=== PATIENT | female | born 1930 | race African-American/Black ===

== ENCOUNTER 2016-12-28 15:32 | Observation (INO) | payer MEDICARE, OTHER ==
[2016-12-28 16:17] LABS: Hematocrit 46.8 % (36.0-47.0); Mean Platelet Volume 9.2 fL (7.4-10.4); Red Blood Cell (RBC) Count 4.93 mill/uL (4.20-5.40); White Blood Cell (WBC) Count 18.1 thou/uL (4.8-10.8)
[2016-12-28 16:22] LABS: ALT (SGPT) 10 U/L (8-55); AST (SGOT) 17 U/L (5-34); Alkaline Phosphatase 145 U/L (40-150); Anion Gap 12 mmol/L (10-20); BUN (Urea Nitrogen) 12 mg/dL (9.8-20.1); Bilirubin, Total 0.3 mg/dL (0.2-1.2); CK (CPK) 72 U/L (29-168); Calc. Creatinine Clearance 0 mL/min (70-130); Calcium 10.2 mg/dL (7.8-10.44); Carbon Dioxide 30 mmol/L (23-31); Chloride 102 mmol/L (98-107); Estimated GFR-MDRD 85; Globulin 4.1 g/dL (2.4-3.5); Lipase 6 U/L (8-78); Protein, Total 8.8 g/dL (6.0-8.3)
[2016-12-28 16:26] LABS: Troponin I Less than 0.010 ng/mL (< 0.028)
[2016-12-28 16:29] LABS: Neutrophil 47 % (42-75)
--- NOTE | 2016-12-28 16:34 | RAD ---
FRONTAL RADIOGRAPH CHEST 12/28/2016 COMPARISON: Two views of chest 12/28/2016. HISTORY: Chest pain. FINDINGS: There is a dual-lead transvenous pacing device inserted via a left subclavian approach. There is atherosclerotic calcification of the aortic arch. Since the study performed earlier on 12/28/2016, there is mild increased linear interstitial density in both lung bases. This may signify interval development of mild interstitial pulmonary edema. N o large volume pleural effusion, focal consolidation, or evidence of alveolar edema. IMPRESSION: Interval development of interstitial linear density in the lung bases may signify interstitial pulmo nary edema in the proper clinical setting. POS: LEXI
[2016-12-28] MEDS ORDERED: Azithromycin 250 MG TAB ONE (17:31)
[2016-12-28] MEDS ORDERED: Doxycycline 100 MG CAP PO SCH (18:45)
[2016-12-28 19:11] LABS: Troponin I Less than 0.010 ng/mL (< 0.028)
[2016-12-28] MEDS ORDERED: Ondansetron ODT 4 MG TAB PO PRN (21:09)
[2016-12-28 21:19] VITALS: BMI 20.3
[2016-12-28] MEDS: Nitroglycerin 2% Ointment 1 INCH/1 GM Packet TOP SCH (22:10)
[2016-12-28] MEDS: Famotidine 20 MG TAB PO SCH (22:20)
[2016-12-28] MEDS: Metoprolol Tartrate 25 MG TAB PO SCH (22:20)
--- NOTE | 2016-12-28 22:49 | HP ---
DATE OF ADMISSION: 12/28/2016 CHIEF COMPLAINT: Chest pain. HISTORY OF PRESENT ILLNESS: Ms. Thakur is a pleasant 86-year-old female who had a 2-day history of intermittent chest pain. She describes it as a feeling of a weight on her chest. She became nauseated when it first started, but has not recurred. The patient started yesterday morning when she was at rest. It has been off and on, most recently t sha while she was trying to cook food. It lasts anywhere from 1 to 2 minutes. Today, she has left arm and hand numbness and tingling, which worried her. She has had no shortness of breath, no diap horesis, otherwise. No nausea, vomiting, diarrhea, or constipation today. She says it is alleviated by rest and exacerbated by moving and doing activities. In the emergency department, workup was unremarkable. She had negative biomarkers x2. Vitals were stable. PAST MEDICAL HISTORY: 1. Hypertension. 2. Supraventricular tachycardia. 3. Diverticulosis with diverticulitis. 4. Iron deficiency anemia. 5. Hyperlipidemia, probably on high cholesterol. 6. Degenerative joint disease. 7. Peripheral vascular disease. 8. Asthma. PAST SURGICAL HISTORY: 1. She had a pacemaker replacement in 05/2013. She thinks Dr. Gamboa did that. Initial pacemaker wa s in 2001, she thinks by Dr. Jolley. 2. Right lobectomy in 2014. 3. Hysterectomy. 4. Thyroidectomy, unsure if it is full or partial. She is not on any thyroid medications. HOME MEDICATIONS: 1. Diltiazem 180 mg p.o. daily. 2. Aspirin 81 mg daily. 3. Flexeril 5 mg p.o. t.i.d. p.r.n. for muscle spasm. 4. Crestor 40 mg p.o. at bedtime. 5. Claritin 10 mg p.o. daily. 6. Nexium 40 mg p.o. every morning. 7. Mack 5/325 p.r.n. for pain. 8. Albuterol MDI p.r.n. for shortness of breath. ALLERGIES: To: 1. KEFLEX, reaction unknown. 2. PENICILLIN, causes rash. FAMILY HISTORY: Negative for clotting or bleeding disorder. No immune dysfunction and noncontribut ory. SOCIAL HISTORY: Negative for habits x3. She is and lives alone, but has a son that lives t wo blocks away. REVIEW OF SYSTEMS: A 10-point review of systems was performed, negative for all other systems excep t as per HPI. PHYSICAL EXAMINATION: VITAL SIGNS: Temperature 98.7, pulse 81, blood pressure 142/82, respiratory 18, satting 98% on room air. GENERAL: She is awake. She is alert. She is oriented in 3. She is a thin female , appears to be in no distress. HEENT: Normocephalic, atraumatic. Pupils are equal, round, and react to light bilaterally, mucous membranes are moist. She has no visible lesions. No thrush. She is wearing a wig. NECK: Supple without lymphadenopathy, JVD, or thyromegaly. She has a normal carotid upstrokes. I do not appreciate bruits. LUNGS: Clear to auscultation bilaterally without wheezes, rales, or rhonchi. She initially had tyshawn e faint bibasilar crackles that is cleared with her first deep breath. CARDIOVASCULAR: She has normal S1 and S2. She has normal cardiac and regular. She has no audible murmurs. Pacemaker to the left upper chest is clean, dry, and intact. ABDOMEN: Soft, it is nontender, nondistended. She has no masses, no organomegaly with normoactive bowel sounds. EXTREMITIES: Show no cyanosis, no clubbing, no edema. She has thin extremities with barely palpabl e posterior tibial pulses bilaterally. Her legs are cool to touch. SKIN: Warm, moist, and well perfused without rashes or lesions. NEUROLOGIC EXAM: Cranial nerves II through XII are grossly intact without focal or neurologic defic its. She has 5/5 strength. LABORATORY DATA AND IMAGING: CMP is completely normal. Creatinine is 0.78, potassium 4.4. Liver f unction is normal. CBC showed a white count of 18.1 with a normal differential, hemoglobin 14.9, he matocrit of 46.8, and platelets are normal. Troponin I was undetectable x2, MB was 1.9 and 1.7. Chest x-ray showed bibasilar linear density that could be a linear pulmonary edema. EKG showed normal sinus rhythm. She has no pathologic ST-T changes. IMPRESSION AND PLAN: 1. Chest pain: Pressure like in the patient with multiple risk factors. She was placed on metopro lol, nitro paste, oxygen, aspirin and get serial cardiac biomarkers. Echocardiogram has been ordere d for the morning. We will ask Cardiology to see her. Her biomarkers were negative. We will defer stress testing to Cardiology. 2. Hypertension. We will continue home medications. 3. History of supraventricular tachycardia. Pacemaker in place. She is on diltiazem, which will c ontinue. 4. Diverticulosis, asymptomatic. 5. History of iron deficiency anemia. Hemoglobin normal. 6. Hyperlipidemia, primarily cholesterol. We will continue Crestor. 7. Peripheral vascular disease, currently stable. 8. History of asthma. We will continue MDI p.r.n. Thus patient placed on observation with telemetry. We will follow up on the results in the morning.
[2016-12-28 23:03] LABS: Troponin I 0.016 ng/mL (< 0.028)
[2016-12-29] MEDS: Nitroglycerin 2% Ointment 1 INCH/1 GM Packet TOP SCH ×2 (04:28→08:56)
[2016-12-29 06:04] LABS: Anion Gap 8 mmol/L (10-20); BUN (Urea Nitrogen) 11 mg/dL (9.8-20.1); Calc. Creatinine Clearance 49 mL/min (70-130); Calcium 9.4 mg/dL (7.8-10.44); Carbon Dioxide 28 mmol/L (23-31); Chloride 106 mmol/L (98-107); Cholesterol 219 mg/dl (< 200 Desired); Estimated GFR-MDRD Greater than 90; LDL Cholesterol, Calculated 162 mg/dL
[2016-12-29 06:18] LABS: Hematocrit 41.1 % (36.0-47.0); Mean Platelet Volume 9.7 fL (7.4-10.4); Neutrophil 29 % (42-75); Reactive Lymphocytes 15 % (0-10); Red Blood Cell (RBC) Count 4.33 mill/uL (4.20-5.40); White Blood Cell (WBC) Count 14.7 thou/uL (4.8-10.8)
[2016-12-29] MEDS ORDERED: Aspirin 325 MG TAB PO SCH (08:00)
[2016-12-29] MEDS: Famotidine 20 MG TAB PO SCH (08:59)
[2016-12-29] MEDS ORDERED: FLU VACC TS2017-18 (>65YR) 0.5 ML SYRINGE IM ONE (09:00)
[2016-12-29] MEDS: Metoprolol Tartrate 25 MG TAB PO SCH (09:00)
[2016-12-29] MEDS ORDERED: Enoxaparin Sodium 30 MG/0.3 ML SYRINGE SC SCH (09:00)
--- NOTE | 2016-12-29 10:16 | PDOC.CTH ---
<Shabnam Boyce - Last Filed: 12/29/16 10:27> Cardiology Progress Note - Subjective The pt was seen and examined. No overnight events. She reported she feels burning like discomfort with 3/10 on pain scale in her Lt upper chest. She denied SOB, fatigue or nausea since she admitted to the hospital. - Objective Vital Signs Temp Pulse Resp BP Pulse Ox 12/29/16 08:00 98.6 F 71 18 12/29/16 07:11 98.6 F 71 18 134/64 100 12/29/16 03:45 98.7 F 71 16 137/65 95 Weight 118 lb 6.4 oz 12/28/16 12/29/16 12/30/16 06:59 06:59 06:59 Intake Total 240 Output Total 600 Balance -360 - Physical Examination General/Neuro: alert & oriented x3 Neck: no JVD present Lungs: CTA Heart: RRR Abdomen: soft Extremities: other: (No edema) - Telemetry Telemetry Rhythm: SR - Labs Result Diagrams: 12/29/16 05:03 12/29/16 05:03 Troponin/CKMB CK-MB (CK-2) 1.5 ng/mL (0-6.6) 12/29/16 05:03 Troponin I 0.010 ng/mL (< 0.028) 12/29/16 05:03 - Assessment/Plan 1. CP - stable with normal Trop x4; Echo result with normal; on ASA and BBlocker ; Start Lisinopril 10mg daily; recheck Cr level within a few days 2. Hx of SVT - remain SR; Cont. monitor 3. HTN - Stable with current medication 4. COPD - Stable with RA 5. dyslipidemia - Start Lipitor 20 mg daily for high LDL and triglyceride; recheck her Lipid level within 3 months 6. Hx of PM placement - last interrogation showed normal; cont. monitor on tele MAR Reviewed * From Cardiac standpoint, the pt is stable to d/c home with ASA, BBlocker, RONALDO , and Statin med. The pt will f/u with Dr Gamboa office within 2wks for possible outpt stress test and starting Plavix and/or Ranexa for CP Review of Systems - Review of Systems Constitutional: reports: no symptoms reported EENTM: reports: no symptoms reported Respiratory: reports: no symptoms reported Cardiac (ROS): reports: see HPI ABD/GI: reports: no symptoms reported : reports: no symptoms reported Musculoskeletal: reports: no symptoms reported Skin: reports: no symptoms reported Neurological: reports: no symptoms reported <Tyrone Gamboa - Last Filed: 12/29/16 10:58> Cardiology Progress Note - Objective Vital Signs Temp Pulse Resp BP Pulse Ox 12/29/16 08:00 98.6 F 71 18 12/29/16 07:11 98.6 F 71 18 134/64 100 12/29/16 03:45 98.7 F 71 16 137/65 95 Weight 118 lb 6.4 oz 12/28/16 12/29/16 12/30/16 06:59 06:59 06:59 Intake Total 240 Output Total 600 Balance -360 - Labs Result Diagrams: 12/29/16 05:03 12/29/16 05:03 Troponin/CKMB CK-MB (CK-2) 1.5 ng/mL (0-6.6) 12/29/16 05:03 Troponin I 0.010 ng/mL (< 0.028) 12/29/16 05:03 - Assessment/Plan The pt. was seen and eval. by me.Chest clear, RRR,no edema. She denies any chest discomfort or SOB this AM. EKG unremarkable. Enzymes negative. I agree with the A/P by the NURSING HOME DIRECTOR. We have discussed the assessment and plan for the pt. She can be discharged to home.I will see her back in the office in a couple weeks.
[2016-12-29 11:42] VITALS: BP 139/71; TEMP 98
--- NOTE | 2016-12-29 12:52 | DIS ---
PRIMARY CARE PHYSICIAN: Dr. Lane Monroy PRIMARY BARIATRIC PROGRAM COORDINATOR: Dr. Gamboa DATE OF ADMISSION: 12/28/2016 DATE OF DISCHARGE: 12/29/2016 DISCHARGE DIAGNOSES: 1. Chest pain, low risk for acute coronary syndrome. 2. History of supraventricular tachycardia. 3. Hyperlipidemia. 4. Hypertension. 5. Peripheral vascular disease. 6. Diverticulosis. 7. Iron deficiency anemia. 8. Degenerative joint disease. 9. Asthma. CONSULTATIONS: Cardiology, Dr. Gamboa. PROCEDURES: A 2D echocardiogram which revealed EF of 55-60%, pacer wires in place, moderate to richmond re tricuspid regurgitation, but otherwise unremarkable. HISTORY AND PHYSICAL: Ms. Thakur is a pleasant 86-year-old female with a 2-day history of intermi ttent chest pain that she describes as a weight on her chest, initially nauseated, and then began to have numbness and tingling into her left hand and arm. She was in the emergency department for ronit luation. Workup was initially negative. We were called for admission. HOSPITAL COURSE: The patient was seen and examined by me in the Emergency Department. She was plac ed in observation with telemetry. Serial cardiac biomarkers were negative. Labs in the morning wer e normal. Her vitals remained stable. She had no arrhythmias. Cardiology was consulted, and recom mended outpatient follow up with possible stress test, but did not feel she needed to stay in the [facility] to have that completed. She was cleared for discharge. PHYSICAL EXAMINATION: The patient was seen and examined on the day of discharge. Discharge plan an d disposition were discussed with the patient face to face at the bedside. DISCHARGE MEDICATIONS: Same as her home medications. 1. Albuterol MDI 2 puffs q.6h. p.r.n. 2. Amlodipine 5 mg daily. 3. Aspirin 81 mg daily. 4. The patient was changed to Lipitor 20 mg p.o. at bedtime. New prescription was sent and her Cre stor was stopped. 5. Biotin 1000 mcg daily. 6. Calcium plus D3 625/125 one daily. 7. Flexeril 5 mg p.o. t.i.d. p.r.n. 8. Diltiazem 240 mg daily. 9. Nexium 40 mg daily. 10. Iron sulfate 325 mg daily. 11. Atrovent 2.5 mg nebs q.6h. 12. Claritin 10 mg daily. 13. Multivitamin daily. 14. Senokot 8.6 mg 1 b.i.d. p.r.n. FOLLOWUP APPOINTMENTS: 1. Follow up with primary care physician in [address] Gamboa in 2 weeks. PENDING STUDIES: None. DISCHARGE CONDITION: Stable. DISPOSITION: The patient will be discharged home via private vehicle. The patient is instructed to return for worsening chest pain.
[2016-12-29 14:23] LABS: Troponin I Less than 0.010 ng/mL (< 0.028)
[2016-12-29] MEDS ORDERED: Atorvastatin Calcium 20 MG TAB PO SCH (21:00)
== END 2016-12-29 16:13 | disposition home or self-care (01) ==
LOC: ERS 15:32 → 2SW 18:57
PROVIDERS: ADMIT Internal Medicine Infectious Disease; ATTEND Internal Medicine Infectious Disease
DX: R07.89 Other chest pain (principal); I47.1 Supraventricular tachycardia; E78.5 Hyperlipidemia, unspecified; I10 Essential (primary) hypertension; I73.9 Peripheral vascular disease, unspecified; K57.30 Diverticulosis of large intestine without perforation or abscess without bleeding; D50.9 Iron deficiency anemia, unspecified; M19.90 Unspecified osteoarthritis, unspecified site; J45.909 Unspecified asthma, uncomplicated; Z88.1 Allergy status to other antibiotic agents; Z88.0 Allergy status to penicillin; Z79.82 Long term (current) use of aspirin; Z95.0 Presence of cardiac pacemaker; Z90.710 Acquired absence of both cervix and uterus; Z90.2 Acquired absence of lung [part of]; Z87.891 Personal history of nicotine dependence
CPT/HCPCS: 71010; 71020; 80048; 80053 ×2; 80061; 82248; 82378; 82550; 82553 ×4; 83615; 83690; 83880; 84100; 84484 ×4; 84550; 85025 ×2; 87040; 93005; 93306; 94760; 96360; 99285; G0008; G0378 ×2; Q2036; 36415; 90471; 90682

== ENCOUNTER 2017-04-05 13:15 | Outpatient (CLI) | payer MEDICARE, MEDICAID ==
--- NOTE | 2017-04-05 14:56 | RAD ---
AP VIEW OF THE CHEST: INDICATIONS: Dyspnea. COMPARISON: Prior exam dated 03/15/2017. FINDINGS: Chronic lung changes are stable. No focal consolidation, pleural effusion, or pneumothorax is eviden t. The dual-lead pacemaker is unchanged. Heart size and pulmonary vasculature are within normal hanson its. No acute osseous abnormality is evident. IMPRESSION: No acute cardiopulmonary abnormality. POS: KYLIE
== END 2017-04-05 13:16 | disposition home or self-care (01) ==
LOC: RAD 13:15
PROVIDERS: ATTEND Thoracic Surgery (Cardiothoracic Vascular Surgery)
DX: C34.11 Malignant neoplasm of upper lobe, right bronchus or lung (principal)
CPT/HCPCS: 36415; 71045; 80053; 82248; 82378; 83615; 84100; 84550

== ENCOUNTER 2017-09-02 08:09 | Day surgery (SDC) | payer MEDICARE, MEDICAID ==
[2017-08-31 16:03] VITALS: BMI 20.2
[2017-09-02 08:38] LABS: PTT 28.3 SEC (22.9-36.1)
[2017-09-02 08:39] LABS: INR-International Normal Ratio 0.9; Prothrombin Time 12.5 SEC (12.0-14.7)
[2017-09-02 12:06] VITALS: BP 130/68; TEMP 97.6
--- NOTE | 2017-09-02 12:18 | RAD ---
FRONTAL VIEW CHEST: Indication: Status post lung biopsy. Right side. FINDINGS: Post procedural radiograph of chest upon expiration reveals no evidence of significant pneumothorax. There is added density of the right lower lung zone which may relate to post biopsy change, given rec ent procedure. Chest is otherwise similar appearing to 04-05-17 exam. IMPRESSION: No significant post procedure pneumothorax. POS: [facility]
--- NOTE | 2017-09-02 15:44 | RAD ---
RADIOGRAPH CHEST 1 VIEW: Date: 09/02/17 Time: 12:58 p.m. HISTORY: 87-year-old female one hour status post lung biopsy. COMPARISON: 09/02/17, 11:44 a.m. FINDINGS: Image in expiration demonstrates no pneumothorax. Infiltrate-like densities at the lung bases are aga in noted. There is no interval change. IMPRESSION: No pneumothorax. TRIP [] POS: [facility]
--- NOTE | 2017-09-02 15:51 | CT ---
CT GUIDED RIGHT LUNG MASS BIOPSY: 09/02/17 HISTORY: Right lung mass. Lung cancer. FINDINGS: After explaining the procedure and answering all questions, limited CT of the right chest was perform ed. An anterior approach was planned to the spiculated mass right upper lobe. Sterile technique, buffered local anesthesia, CT guidance, and an anterior intercostal approach were used to carefully advanced a 19 gauge trocar needle to the level of the mass. Position was confirmed with CT imaging. A total of four core 20 gauge biopsy specimens were obtained and submitted to pathbernarda smith for evaluation. Needle was removed. Post procedure imaging shows no evidence of pneumothorax. Jaleel e hemorrhage was seen within the lung parenchyma surrounding the mass. Patient tolerated the procedure well and was eventually discharged in good condition. IMPRESSION: Technically successful CT guided right lung mass biopsy. Pathology is pending. POS: [facility]
== END 2017-09-02 13:55 | disposition home or self-care (01) ==
LOC: CT 08:09
PROVIDERS: ATTEND Internal Medicine
PROC: 0BB43ZX Excision of Right Upper Lobe Bronchus, Percutaneous Approach, Diagnostic (ICD-10-PCS; principal; 2017-09-02)
DX: C34.11 Malignant neoplasm of upper lobe, right bronchus or lung (principal); I10 Essential (primary) hypertension; E78.5 Hyperlipidemia, unspecified; J44.9 Chronic obstructive pulmonary disease, unspecified; I25.10 Atherosclerotic heart disease of native coronary artery without angina pectoris; M19.90 Unspecified osteoarthritis, unspecified site; J45.909 Unspecified asthma, uncomplicated; K21.9 Gastro-esophageal reflux disease without esophagitis; I69.954 Hemiplegia and hemiparesis following unspecified cerebrovascular disease affecting left non-dominant side; I07.1 Rheumatic tricuspid insufficiency; D50.9 Iron deficiency anemia, unspecified; Z87.891 Personal history of nicotine dependence; Z88.0 Allergy status to penicillin; Z88.1 Allergy status to other antibiotic agents; Z79.82 Long term (current) use of aspirin; Z79.899 Other long term (current) drug therapy; Z90.2 Acquired absence of lung [part of]; Z95.0 Presence of cardiac pacemaker
CPT/HCPCS: 32405; 36415; 71045; 77012; 85610; 85730; 88305; 88313; 88341; 88342

== ENCOUNTER 2017-09-13 07:38 | Outpatient (CLI) | payer MEDICARE, MEDICAID ==
--- NOTE | 2017-09-13 12:26 | PET ---
RADIONUCLIDE PET SCAN WITH CT ATTENUATION CORRECTION: HISTORY: Lung cancer, recurrent. Metastatic disease. Restaging. COMPARISON: CT arteriogram chest dated 08/21/17. Prior PET scan from 11/06/14 is also evaluated. FINDINGS: There is physiologic uptake of radiotracer within the GI system and along each urinary tract. The dom inant mass within the right middle lobe shows maximum Q. Clear SUV of 8.3. Increased uptake at the ri ght posterior lung base right lower lobe shows a maximum SUV of 4.4. There was no mass or infiltrate in this area on recent CT from 08/21/17. It more likely represents inflammatory infiltrate and metast atic disease. Nodular infiltrate within the lingula of the left upper lobe has also developed since t he recent CT arteriogram chest. Maximum SUV is 3.4. Increased uptake within a left hilar lymph node shows maximum SUV of 2.6. Uptake within the subcarina l lymph node is 2.9. Nondiagnostic CT attenuation correction images show increased interstitial thickening and patchy infi ltrate throughout each lung. Calcification in the arterial structures. Calcified granulomata from hea led granulomatous disease. Dystrophic calcifications and costs associated with the kidneys. IMPRESSION: 1. Right middle lobe lung neoplasm with hypermetabolic left hilar and subcarinal adenopathy. 2. Hypermetabolic activity associated with recently developed infiltrates within the lingula of the left upper lobe and right lower lobe, as detailed above. Given the rapid appearance since the CT from 08/21/17, the abnormal uptake is likely related to inflammation rather than additional neoplastic fo ci. 3. Atherosclerosis. POS: [facility]EXI
== END 2017-09-13 07:39 | disposition home or self-care (01) ==
LOC: PET 07:38
PROVIDERS: ATTEND Internal Medicine Medical Oncology
DX: C34.2 Malignant neoplasm of middle lobe, bronchus or lung (principal); R59.0 Localized enlarged lymph nodes; R91.8 Other nonspecific abnormal finding of lung field; I70.90 Unspecified atherosclerosis
CPT/HCPCS: 70553; 78815; A9552

== ENCOUNTER 2017-09-14 09:42 | Outpatient (CLI) | payer MEDICARE, MEDICAID ==
[2017-09-14] MEDS ORDERED: ISOVUE-370 76%-LOCM 1 ML ONE (12:30)
== END 2017-09-14 09:43 | disposition home or self-care (01) ==
LOC: BICCT 09:42
PROVIDERS: ATTEND Internal Medicine Medical Oncology
DX: C34.90 Malignant neoplasm of unspecified part of unspecified bronchus or lung (principal)
CPT/HCPCS: 70470

== ENCOUNTER 2017-11-15 22:48 | Inpatient (IN) | payer MEDICARE, OTHER ==
[2017-11-15] MEDS ORDERED: Ondansetron HCl/PF 4 MG/2 ML Vial ONE (23:17)
--- NOTE | 2017-11-16 01:18 | PDOC.FPRHP ---
- History of Present Illness Chief Complaint: Abdominal pain History of Present Illness: Patient presents for abdominal pain that began at noon. Pain is cramping across entire abdomen. Presented to [place] ED and was transferred for SBO. Patient reports nausea, no vomiting. Has had 4-5 normal BMs today. Last BM 1800 11/15. Reports normal appetite, ate fried okra before going to ED. Pt has had one obstruction in past. Surgical hx significant only for hysterectomy. Denies fever , chills. ED Course: morphine, zofran, NG tube - Allergies/Adverse Reactions Allergies Allergy/AdvReac Type Severity Reaction Status Date / Time Penicillins Allergy Severe TONGUE Verified 08/31/17 15:51 SWELLING cephalexin monohydrate Allergy Intermediate RASH/ITCHIN Verified 08/31/17 15:51 [From [employer]] G - Home Medications Medication Instructions Recorded Confirmed Type Aspirin [Ecotrin Low Strength] 81 mg PO DAILY 07/10/13 11/16/17 History Cyclobenzaprine HCl 5 mg PO TID 07/10/13 11/16/17 History Albuterol Sulfate [Proair HFA] 2 puff INH Q6H PRN 11/19/14 11/16/17 History Amlodipine Besylate [amLODIPine 5 mg PO DAILY 06/09/16 11/16/17 History Besylate] Sennosides [Senokot] 1 tab PO BID PRN 12/28/16 11/16/17 History Esomeprazole Magnesium [Nexium 20 mg PO DAILY 08/21/17 11/16/17 History 24Hr] Ipratropium [place] [Atrovent] 2.5 mg NEB QID 08/31/17 11/16/17 History Mirtazapine 15 mg PO HS 08/31/17 11/16/17 History Nitroglycerin [Nitrostat] 0.4 mg SL Q5MIN 08/31/17 11/16/17 History - History PMHx: arthritis, HTN, HLD, lung CA on chemo, COPD PSHx: hysterectomy FHx: CAD, breast cancer Social: Lives alone in [place]. Former smoker, quit 20 yrs ago, 1pack/wk for 10 yrs. Denies alcohol or drug use. - Review of Systems General: denies: fever/chills, weight/appetite/sleep changes Eyes: denies: eye pain, vision changes ENT: denies: nasal congestion, rhinorrhea Respiratory: denies: cough, shortness of breath Cardiovascular: denies: chest pain, palpitation, edema Gastrointestinal: reports: nausea, abdominal pain (diffuse, cramping). denies: vomiting, diarrhea, constipation Skin: denies: rashes, lesions Musculoskeletal: reports: arthritis/arthralgias. denies: swelling Neurological: denies: numbness, syncope Psychological: denies: anxiety, depression - Vital signs BP: 120/69 HR: 92 RR: 18 Tmax: 97.5 Pox: 93% on RA Wt: 51 kg - Physical Exam Constitutional: NAD, awake, alert and oriented HEENT: normocephalic and atraumatic, PERRLA, EOMI, grossly normal vision, grossly normal hearing, MMM, oropharynx clear Neck: supple, trachea midline -Chest: L port in place Heart: RRR, normal S1/S2, no murmurs/rubs/gallops, no edema Lungs: CTAB, no rales/rhonchi, no wheezing, no retractions Abdomen: soft, bowel sounds present (hyperactive), other (diffusely TTP) Musculoskeletal: normal structure, normal tone Neurological: no focal deficit Skin: good turgor, capillary refill <2 seconds Heme/Lymphatic: no unusual bruising or bleeding Psychiatric: normal mood and affect FMR H&P: Results - Labs Result Diagrams: 11/16/17 04:42 11/16/17 04:42 FMR H&P: A/P - Problem List (1) SBO (small bowel obstruction) Current Visit: No Status: Acute Code(s): K56.69 - OTHER INTESTINAL OBSTRUCTION * DO NOT USE * Comment: partial (2) H/O: lung cancer Current Visit: No Status: Chronic Code(s): Z85.118 - PERSONAL HISTORY OF MALIGNANT NEOPLASM OF BRONCHUS AND LUNG Comment: h/o lobectomy? in complete remission per patient (3) HTN (hypertension) Current Visit: No Status: Chronic Code(s): I10 - ESSENTIAL (PRIMARY) HYPERTENSION Qualifiers: Hypertension type: essential hypertension Qualified Code(s): I10 - Essential (primary) hypertension - Plan 87 yo F w/ PMH lung cancer, HTN, HLD presents with abdominal pain and admitted for SBO. SBO - last BM 1800 on 11/15 - abdominal pain with N with no V. - CT ab/pelvis showed extensive stool in colon, extensive sigmoid diverticulosis , mod small bowel dilatation with likely obstruction - NG tube placed, monitor output - IVF NS @ 100 - morphine prn, zofran prn - Dr. Henry consulted by ED HTN - monitor BPs, systolic in 120s - pending med rec HLD - pending med rec COPD - pending med rec Lung cancer - Dr. Roman is oncologist - last chemo treatment was 10/03 Ppx: Lovenox Diet: NPO Dispo: admit to medical floor FMR H&P: Upper Level - Pertinent history 87F p/w 8 hour history of crampy abdominal pain. CT confirms SBO. She is c/o nausea but no vomiting. Patient had 5 loose BM's throughout the day prior to obstruction. One prior obstruction. - Pertinent findings BP: 120/69 HR: 92 RR: 18 Tmax: 97.5 Pox: 93% on RA Wt: 51 kg Gen: A&Ox3; in no acute distress CV: RRR; no murmurs Pulm: CTA-B GI: diffuse tenderness to palpation; no rebound or guarding Skin: no rashes or lesions; normal turgor - Plan Date/Time: 11/16/17 0118 1. SBO -CT shows mid SBO -decompress with NG tube; IV morphine for pain control; continue maintenance IVF s/p 1 L NS bolus -Dr. Henry consulted by ED 2. Lung cancer -Dr. Roman is oncologist managing chemo -last chemo treatment was 10/03 [place], have evaluated this patient and agree with findings/plan as outlined by rn internship resident. Pertinent changes/additions are listed here.
[2017-11-16] MEDS ORDERED: Ondansetron HCl/PF 4 MG/2 ML Vial IVP PRN (01:25)
[2017-11-16] MEDS ORDERED: Morphine 4 MG/ML VIAL SLOW IVP PRN (02:02)
[2017-11-16] MEDS ORDERED: Sodium Chloride 0.9% 1,000 ML IV SCH (02:02)
[2017-11-16 02:24] VITALS: BMI 19.5
[2017-11-16 05:04] LABS: #Basophils 0.1 thou/uL (0.0-0.2); #Monocytes 0.7 thou/uL (0.11-0.59); #Neutrophils 8.3 thou/uL (1.40-6.50); %Basophils 0.5 % (0.0-1.0); %Eosinophils 0.3 % (0.0-10.0); %Lymphocytes 35.6 % (21.0-51.0); %Monocytes 5.1 % (0.0-10.0); %Neutrophils 58.5 % (42.0-75.0); Hemoglobin 12.7 g/dL (12.0-16.0); Mean Corpuscular HGB CONC 32.6 g/dL (32.0-36.0); Mean Corpuscular Hemoglobin 28.2 pg (27.0-31.0); Mean Corpuscular Volume 86.6 fL (78.0-98.0); Mean Platelet Volume 8.2 fL (7.4-10.4); Platelet Count 245 thou/uL (130-400); Red Blood Cell (RBC) Count 4.51 mill/uL (4.20-5.40); White Blood Cell (WBC) Count 14.1 thou/uL (4.8-10.8)
[2017-11-16 05:15] LABS: Anion Gap 14 mmol/L (10-20); BUN (Urea Nitrogen) 7 mg/dL (9.8-20.1); Calc. Creatinine Clearance 45 mL/min (70-130); Calcium 9.5 mg/dL (7.8-10.44); Carbon Dioxide 24 mmol/L (23-31); Chloride 107 mmol/L (98-107); Estimated GFR-MDRD 90; Glucose 118 mg/dL (83-110); Sodium 141 mmol/L (136-145)
--- NOTE | 2017-11-16 05:53 | PDOC.FM ---
- Subjective Subjective: Patient had one episode of vomiting after arriving to the floor & vomited ~ 250mL of fluid. Denies any fever/chills, nausea, SOB, or CP. Has not had a BM since ~6PM yesterday. Says her pain is well-controlled. - Objective MAR Reviewed: Yes Vital Signs & Weight: Vital Signs (12 hours) Temp Pulse Resp BP Pulse Ox 11/16/17 04:00 96 11/16/17 03:59 98.1 F 80 18 127/76 95 11/16/17 01:45 98.1 F 87 18 143/77 H 96 Weight Weight 51.7 kg Result Diagrams: 11/16/17 04:42 11/16/17 04:42 Phys Exam - Physical Examination Constitutional: NAD HEENT: moist MMs, sclera anicteric, oral pharynx no lesions Neck: no nodes, supple, full ROM Respiratory: no wheezing, no rales, no rhonchi, clear to auscultation bilateral Cardiovascular: RRR, no significant murmur, no rub Gastrointestinal: soft, no distention, positive bowel sounds TTP in epigastrium Musculoskeletal: no edema Neurological: non-focal, moves all 4 limbs Psychiatric: normal affect, A&O x 3 Skin: no rash, normal turgor Dx/Plan (1) SBO (small bowel obstruction) Code(s): K56.69 - OTHER INTESTINAL OBSTRUCTION * DO NOT USE * Status: Acute (2) COPD (chronic obstructive pulmonary disease) Status: Chronic Qualifiers: COPD type: chronic bronchitis Chronic bronchitis type: unspecified Qualified Code(s): J42 - Unspecified chronic bronchitis (3) H/O: lung cancer Code(s): Z85.118 - PERSONAL HISTORY OF MALIGNANT NEOPLASM OF BRONCHUS AND LUNG Status: Chronic (4) HTN (hypertension) Code(s): I10 - ESSENTIAL (PRIMARY) HYPERTENSION Status: Chronic Qualifiers: Hypertension type: essential hypertension Qualified Code(s): I10 - Essential (primary) hypertension (5) PVD (peripheral vascular disease) Code(s): I73.9 - PERIPHERAL VASCULAR DISEASE, UNSPECIFIED Status: Chronic (6) Pacemaker Code(s): Z95.0 - PRESENCE OF CARDIAC PACEMAKER Status: Chronic - Plan Plan: 87YOF w/ PMH significant for lung cancer currently undergoing chemo, HTN, HLD, & COPD who presented to the ED with abdominal pain and was admitted for a SBO. SBO: - Last BM 1800 on 11/15 per patient. No BM overnight. - CT ab/pelvis showed extensive stool in colon, extensive sigmoid diverticulosis , mod small bowel dilatation with likely obstruction. - Will continue NG tube on low intermittent suction. Will continue to monitor output & BMs. - Will continue NPO for bowel rest until next BM and continue IVFs at a rate of 125mL/hr while NPO. - Will continue morphine & zofran prn for pain & nausea. - General surgery, Dr. Henry consulted in ED yesterday. Appreciate recs. HTN: - Has been well-controlled since admission. Will start on PRNs for BP control while NPO. HLD - Will hold home meds while NPO. COPD - Will resume home meds. Lung cancer - Aware, follows with oncology, Dr. Roman. - Last chemo treatment was 10/03. Ppx: Lovenox Diet: NPO IVFs: NS @ 125mL/hr Dispo: Continue to monitor on medical floor.
--- NOTE | 2017-11-16 09:12 | RAD ---
KUB: HISTORY: Evaluation for small bowel obstruction. Constipation. Abdominal pain. FINDINGS: Contrast in the kidneys and bladder related to previous CT examination. The bowel gas pattern itself appears nonobstructing. It is difficult to appreciate any of the changes noted on the recent CT of an area of small bowel dilatation. There are fairly extensive atherosclerotic changes. There are ar thritic changes of the spine and scoliosis. IMPRESSION: 1. Nasogastric tube with the tip in the stomach. 2. Nonobstructive appearing bowel gas pattern. POS: [facility]
[2017-11-16] MEDS: Sodium Chloride 0.9% 1,000 ML IV SCH ×3 (09:21→19:21)
--- NOTE | 2017-11-16 09:34 | HP ---
I have reviewed the history and physical of Dr. Vidhya Leal and agree with her assessment and plan. Briefly, Ms. Thakur is a pleasant 87-year-old black female patient who beginning at noon yesterday developed epigastric pain followed by some nausea, but no vomiting initially. She went to the [facility] where CT of the abdomen showed a small-bowel obstruction. She was transferred [facility]. She states she had a similar episode about a year ago that did not require surgery. I examined the patient at 8:00 in the morning of 11/16/2017. Ms. Thakur is resting quietly in bed. She is awake, alert, in no distress. She still complains ab out some crampy epigastric pain radiating across her abdomen associated with occasional nausea. She has an NG tube in place. PHYSICAL EXAMINATION: VITAL SIGNS: Her blood pressure is 120/70, her heart rate is 85 and regular, respirations are 18. S he is afebrile. Her room air pulse ox is 93%. HEENT: Mucus membranes are slightly dry. NG tube in place. NECK: Supple. CARDIOVASCULAR: PMI is in the fifth intercostal space. S4 gallop. No murmur or rub noted. LUNGS: Diminished, but clear without rales, rhonchi or wheezes. No distress. ABDOMEN: Slightly distended, minimally tender diffusely. No guarding, rebound or rigidity is noted. EXTREMITIES: No edema. NEUROLOGIC: No focal deficits. LABORATORY DATA: CBC: White count 14,100, hemoglobin 12.7, hematocrit 39.1. Her MCV is 86.6. Chem istries: Sodium 141, potassium 4, chloride 107, bicarbonate 24, BUN 7, creatinine 0.74. The CT of the abdomen in [place] is read as small-bowel obstruction, but I do not have the films or re port available. ASSESSMENT: Small-bowel obstruction secondary to previous pelvic surgery in the 1970s. PLAN: For now, we will continue with IV fluids. Monitor electrolytes. NG suctioning. I do not ant icipate that she will need surgery, but they have been consulted. In the meantime, continue current management.
[2017-11-16] MEDS: Enoxaparin Sodium 40 MG/0.4 ML SYRINGE SC SCH (12:16)
[2017-11-16] MEDS ORDERED: PROVENTIL INHALER 6.7 G (200 INHALATIONS) INH PRN (14:08)
[2017-11-16] MEDS: Ipratropium Bromide 2.5 ml Neb NEB SCH ×2 (14:22→18:37)
[2017-11-17] MEDS: Sodium Chloride 0.9% 1,000 ML IV SCH (03:27)
[2017-11-17 04:50] LABS: #Basophils 0.1 thou/uL (0.0-0.2); #Lymphocytes 4.4 thou/uL (1.20-3.40); #Monocytes 0.8 thou/uL (0.11-0.59); #Neutrophils 9.3 thou/uL (1.40-6.50); %Basophils 0.6 % (0.0-1.0); %Eosinophils 0.1 % (0.0-10.0); %Lymphocytes 29.9 % (21.0-51.0); %Monocytes 5.6 % (0.0-10.0); %Neutrophils 63.9 % (42.0-75.0); Hemoglobin 11.9 g/dL (12.0-16.0); Mean Corpuscular HGB CONC 32.1 g/dL (32.0-36.0); Mean Corpuscular Hemoglobin 27.6 pg (27.0-31.0); Mean Platelet Volume 8.2 fL (7.4-10.4); Platelet Count 226 thou/uL (130-400); RBC Distribution Width 14.9 % (11.5-14.5); Red Blood Cell (RBC) Count 4.32 mill/uL (4.20-5.40); White Blood Cell (WBC) Count 14.6 thou/uL (4.8-10.8)
[2017-11-17 05:00] LABS: Anion Gap 12 mmol/L (10-20); BUN (Urea Nitrogen) 8 mg/dL (9.8-20.1); Calc. Creatinine Clearance 53 mL/min (70-130); Calcium 8.8 mg/dL (7.8-10.44); Carbon Dioxide 24 mmol/L (23-31); Chloride 108 mmol/L (98-107); Estimated GFR-MDRD Greater than 90; Glucose 99 mg/dL (83-110); Potassium 3.5 mmol/L (3.5-5.1); Sodium 140 mmol/L (136-145)
--- NOTE | 2017-11-17 05:52 | PDOC.FM ---
- Subjective Subjective: Patient had another episode of emesis overnight. No BM yet. Is passing gas. Denies any chest pain or SOB. States her abdominal pain is still well- controlled. Only required one dose of morphine overnight. States surgery did come see her yesterday and is planning to do a test this AM. - Objective MAR Reviewed: Yes Vital Signs & Weight: Vital Signs (12 hours) Temp Pulse Resp BP Pulse Ox 11/17/17 05:35 98.4 F 87 16 123/79 94 L 11/16/17 23:51 98.7 F 91 18 130/82 94 L 11/16/17 20:00 94 L 11/16/17 19:26 98.5 F 91 18 146/76 H 94 L 11/16/17 18:37 99 20 94 L Weight Admit Weight 51.7 kg Weight 51.7 kg I&O: 11/15/17 11/16/17 11/17/17 06:59 06:59 06:59 Intake Total 400 2334 Output Total 650 550 Balance -250 1784 Result Diagrams: 11/17/17 04:23 11/17/17 04:23 Phys Exam - Physical Examination Constitutional: NAD HEENT: moist MMs, sclera anicteric, oral pharynx no lesions Neck: supple, full ROM Respiratory: no wheezing, no rales, no rhonchi, clear to auscultation bilateral Cardiovascular: RRR, no significant murmur, no rub Gastrointestinal: soft, no distention, positive bowel sounds mild TTP in both lower quadrants and epigastrium decreased compared to yesterday Musculoskeletal: no edema Neurological: non-focal, moves all 4 limbs Psychiatric: normal affect, A&O x 3 Skin: no rash, normal turgor Dx/Plan (1) SBO (small bowel obstruction) Code(s): K56.69 - OTHER INTESTINAL OBSTRUCTION * DO NOT USE * Status: Acute (2) COPD (chronic obstructive pulmonary disease) Status: Chronic Qualifiers: COPD type: chronic bronchitis Chronic bronchitis type: unspecified Qualified Code(s): J42 - Unspecified chronic bronchitis (3) H/O: lung cancer Code(s): Z85.118 - PERSONAL HISTORY OF MALIGNANT NEOPLASM OF BRONCHUS AND LUNG Status: Chronic (4) HTN (hypertension) Code(s): I10 - ESSENTIAL (PRIMARY) HYPERTENSION Status: Chronic Qualifiers: Hypertension type: essential hypertension Qualified Code(s): I10 - Essential (primary) hypertension (5) PVD (peripheral vascular disease) Code(s): I73.9 - PERIPHERAL VASCULAR DISEASE, UNSPECIFIED Status: Chronic (6) Pacemaker Code(s): Z95.0 - PRESENCE OF CARDIAC PACEMAKER Status: Chronic - Plan Plan: 87YOF w/ PMH significant for lung cancer currently undergoing chemo, HTN, HLD, & COPD who presented to the ED with abdominal pain and was admitted for a SBO. SBO: - Last BM 1800 on 11/15 per patient. No BM overnight. - CT ab/pelvis showed extensive stool in colon, extensive sigmoid diverticulosis , mod small bowel dilatation with likely obstruction. - Will continue NG tube on low intermittent suction. Will continue to monitor output & BMs. Gastric drainage of ~700mL overnight w/ one episode of emesis w/ 150mL output. - Will continue NPO for bowel rest until next BM and continue IVFs at a rate of 125mL/hr while NPO. Switched to LR vs. NS today due to hypercloremia. - Will continue morphine & zofran prn for pain & nausea. - General surgery, Dr. Henry consulted in ED yesterday. Saw patient yesterday and plan to do gastrograffin study this AM. Will follow their recs regarding further management. HTN: - Has been well-controlled since admission. - Will hold off on PRNs for now. Holding home meds while patient is NPO. HLD - Will hold home meds while NPO. COPD - Will resume home meds. Lung cancer - Aware, follows with oncology, Dr. Roman. - Last chemo treatment was 10/03. Ppx: Lovenox Diet: NPO IVFs: LR @ 125mL/hr Dispo: Continue to monitor on medical floor.
[2017-11-17] MEDS: Ipratropium Bromide 2.5 ml Neb NEB SCH ×4 (05:56→19:52)
[2017-11-17] MEDS ORDERED: Lactated Ringer's 1,000 ML IV SCH (06:00)
[2017-11-17] MEDS ORDERED: MD-Gastroview 120 ML BOT ONE (10:18)
[2017-11-17] MEDS ORDERED: Sodium Chloride 0.45% 1,000 ML IV SCH (11:15)
[2017-11-17] MEDS: Enoxaparin Sodium 40 MG/0.4 ML SYRINGE SC SCH (11:19)
--- NOTE | 2017-11-17 12:12 | RAD ---
SMALL BOWEL FOLLOW THROUGH: Date: 11/17/17 HISTORY: Small bowel obstruction. COMPARISON: CT examination dated 11/15/17. FINDINGS: The preliminary switchboard operator helper film shows a fairly nonobstructed bowel gas pattern. Air within both small and large bowel, and a moderate amount of stool. Small bowel transit time was 1 hour. There are some slightly dilated mid ileal small bowel loops seen , more along the left side of the pelvis. The degree of dilatation appears less pronounced than on th e CT examination. IMPRESSION: Some mild persistent focal dilatation of some of the mid abdominal small bowel loops. Proximal jejunu m and distal ileum are normal in caliber. The degree of dilatation of this segment of small bowel pam ears less pronounced than on the CT examination. Small bowel transit time was only 1 hour. POS: [facility]
--- NOTE | 2017-11-17 16:47 | PRG ---
This morning, Ms. Thakur is resting quietly in bed. She states that her abdominal pain has much im proved. She has occasional nausea, but overall states that she is feeling better. She has still not had her bowel movement. She has been seen in consultation by the Surgery Service and they have orde red a Gastrografin small bowel series this morning. If this shows resolution of her SBO, her NG tube will be discontinued and we will begin clear liquid diet. Her vital signs this morning are normal. She is afebrile. Her blood pressure is 127/76. LABORATORY DATA: Her white count is still elevated at 14,600, but again she is clinically improved a nd afebrile. Hemoglobin is 11.9, hematocrit is 37.1. Chemistries: Sodium is 140, potassium is 3.5, chloride is 108, bicarbonate is 24, and her BUN and creatinine are normal at 8 and 0.62.
--- NOTE | 2017-11-17 20:18 | CON ---
DATE OF CONSULTATION: 11/16/2017 CONSULTING PHYSICIAN: Dr. Meza. REASON FOR CONSULTATION: Small-bowel obstruction. HISTORY OF PRESENT ILLNESS: Patient is an 87-year-old black female. She is a patient of Dr. Oleksandr alvarez. She had presented to the emergency room in [place] complaining of nausea, but no real vomiting or diarrhea. She did have some complaints of abdominal discomfort. She apparently has a history of at least 1 prior episode of bowel obstruction. She does have a history of an open hysterectomy. She be lieves this was sometime in the 1970s. CT scan obtained at the [facility] revealed evidence of a small-bowel obstruction. Simba ogastric tube was placed and she was transferred to this facility. Secondary to her advanced age and multiple medical problems, she was admitted to the [facility] and I was consulted. When I saw her yesterday (on 11/16/2017), she denied any significant abdominal pain and noted that sh e felt better after the nasogastric tube was placed. She noted that she did have a bowel movement th day of her presentation to the hospital. PAST MEDICAL HISTORY: 1. Recent history of lung cancer for which she had surgery in 2014. 2. Chronic obstructive pulmonary disease. 3. Hypertension. 4. Arthritis. PAST SURGICAL HISTORY: 1. Hysterectomy. 2. Right lung lobectomy in 2014. 3. Right thyroid lobectomy 2002. MEDICATIONS: Albuterol, amlodipine, Nexium, Atrovent inhaler, mirtazapine. ALLERGIES: PENICILLIN and KEFLEX. PERSONAL/SOCIAL HISTORY: She lives alone in [place]. She quit smoking 20 years ago. Her daughter and sister are present in the room during my examination. PHYSICAL EXAMINATION: VITAL SIGNS: She is afebrile with normal vital signs. HEAD, EYES, EARS, NOSE, AND THROAT: Unremarkable. NECK: Supple. LUNGS: Clear to auscultation throughout. CARDIAC: Regular rate and rhythm without murmur. ABDOMEN: Soft with normoactive bowel sounds. There is no focal mass or tenderness. EXTREMITIES: Unremarkable. LABORATORY DATA: Her white blood cell count at the time of ER presentation was 15.8. By the time I saw her on 11/16/2017 her white count was down to 14.1, hemoglobin was 12.7, platelet count was 245. Chemistry panel revealed essentially normal electrolytes. Her albumin at the time of presentation w as 4.7. ASSESSMENT: Patient with a small-bowel obstruction, likely secondary to adhesions from her hysterect poppy. PLAN: I agree with nasogastric tube that has been placed. I would usually recommend keeping this to suction for 24 hours and then obtaining a Gastrografin small bowel follow through. If contrast pass es through her digestive tract with this study, then I would typically recommend removal of the nasog astric tube initiating a clear liquid diet. Assuming she tolerates this, she can be discharged home. I typically recommend a liquid diet for 48 hours after discharge with resumption of normal diet the reafter. I explained all this in detail with the patient and her family members. She understood and agreed to proceed in this fashion.
[2017-11-18 05:43] LABS: Anion Gap 11 mmol/L (10-20); BUN (Urea Nitrogen) 9 mg/dL (9.8-20.1); Calc. Creatinine Clearance 50 mL/min (70-130); Calcium 8.8 mg/dL (7.8-10.44); Carbon Dioxide 27 mmol/L (23-31); Chloride 107 mmol/L (98-107); Estimated GFR-MDRD Greater than 90; Glucose 92 mg/dL (83-110); Sodium 142 mmol/L (136-145)
[2017-11-18 05:48] LABS: Potassium 2.8 mmol/L (3.5-5.1)
[2017-11-18 05:58] LABS: #Basophils 0.1 thou/uL (0.0-0.2); #Lymphocytes 4.8 thou/uL (1.20-3.40); #Monocytes 0.8 thou/uL (0.11-0.59); #Neutrophils 6.2 thou/uL (1.40-6.50); %Basophils 0.6 % (0.0-1.0); %Eosinophils 0.4 % (0.0-10.0); %Lymphocytes 40.2 % (21.0-51.0); %Monocytes 6.7 % (0.0-10.0); %Neutrophils 52.1 % (42.0-75.0); Hemoglobin 9.7 g/dL (12.0-16.0); Mean Corpuscular Volume 84.5 fL (78.0-98.0); Mean Platelet Volume 8.2 fL (7.4-10.4); Platelet Count 191 thou/uL (130-400); Red Blood Cell (RBC) Count 3.61 mill/uL (4.20-5.40); White Blood Cell (WBC) Count 11.8 thou/uL (4.8-10.8)
--- NOTE | 2017-11-18 06:18 | PDOC.FM ---
- Subjective Subjective: NAEO. NG tube stopped yesterday and patient had 5 BMs overnight. States that her stools were loose but denies seeing any mucus or blood in her stool. No emesis overnight. Denies any N/V/D, CP, or SOB. Says her abdominal pain is still well-controlled. - Objective MAR Reviewed: Yes Vital Signs & Weight: Vital Signs (12 hours) Temp Pulse Resp BP Pulse Ox 11/18/17 03:48 98.7 F 82 16 105/66 97 11/18/17 00:11 98.7 F 86 16 102/64 96 11/17/17 20:22 98.9 F 96 16 101/64 98 11/17/17 20:10 96 11/17/17 19:52 102 H 18 96 Weight Admit Weight 51.7 kg Weight 51.7 kg I&O: 11/16/17 11/17/17 11/18/17 06:59 06:59 06:59 Intake Total 400 2334 1600 Output Total 650 550 Balance -250 1784 1600 Result Diagrams: 11/18/17 04:38 11/18/17 04:38 Phys Exam - Physical Examination Constitutional: NAD HEENT: sclera anicteric Neck: supple, full ROM Respiratory: no wheezing, no rales, no rhonchi, clear to auscultation bilateral Cardiovascular: RRR, no significant murmur, no rub Gastrointestinal: soft, no distention, positive bowel sounds TTP in upper abdomen; no rebound or guarding Musculoskeletal: no edema Neurological: non-focal, normal sensation, moves all 4 limbs Psychiatric: normal affect, A&O x 3 Skin: no rash, normal turgor Dx/Plan (1) SBO (small bowel obstruction) Code(s): K56.69 - OTHER INTESTINAL OBSTRUCTION * DO NOT USE * Status: Resolved (2) COPD (chronic obstructive pulmonary disease) Status: Chronic Qualifiers: COPD type: chronic bronchitis Chronic bronchitis type: unspecified Qualified Code(s): J42 - Unspecified chronic bronchitis (3) H/O: lung cancer Code(s): Z85.118 - PERSONAL HISTORY OF MALIGNANT NEOPLASM OF BRONCHUS AND LUNG Status: Chronic (4) HTN (hypertension) Code(s): I10 - ESSENTIAL (PRIMARY) HYPERTENSION Status: Chronic Qualifiers: Hypertension type: essential hypertension Qualified Code(s): I10 - Essential (primary) hypertension (5) PVD (peripheral vascular disease) Code(s): I73.9 - PERIPHERAL VASCULAR DISEASE, UNSPECIFIED Status: Chronic (6) Pacemaker Code(s): Z95.0 - PRESENCE OF CARDIAC PACEMAKER Status: Chronic - Plan Plan: 87YOF w/ PMH significant for lung cancer currently undergoing chemo, HTN, HLD, & COPD who presented to the ED with abdominal pain and was admitted for a SBO. SBO: - 5 BMs on bedside commode in last 24 hours. NG tube d/c yesterday by general surgery. - Will continue continue clear liquid diet today per gen surg & if patient tolerates can d/c later today. - Will continue morphine & zofran prn for pain & nausea. Hypokalemia: - K down to 2.8 this AM. Replaced w/ 20mEq IV & 40 PO. - Will recheck K @ 12:00. If just below normal or WNLs will d/c on 40mEq PO x 1 week and instruct patient to f/u w/ PCP for repeat BMP in 1 week. HTN: - Will continue to hold home meds as BP has been low-normal since admission. HLD - Will resume home meds. COPD - Will resume home meds. Lung cancer - Aware, follows with oncology, Dr. Roman. - Last chemo treatment was 10/03. Ppx: Lovenox Diet: clear liquids IVFs: none Dispo: Possibly d/c later today if tolerating PO and K near normal limits.
[2017-11-18] MEDS ORDERED: Nitroglycerin 0.4 MG TAB (25 Tab Bottle) SL SCH (06:30)
[2017-11-18] MEDS ORDERED: Potassium Chloride 20 MEQ in Premix Bag 1 BAG IVPB SCH ×2 (06:30→08:00)
[2017-11-18] MEDS: Ipratropium Bromide 2.5 ml Neb NEB SCH ×3 (06:58→14:37)
[2017-11-18] MEDS ORDERED: Aspirin 81 mg Enteric Coated Tablet PO SCH (09:00)
[2017-11-18] MEDS ORDERED: Non-Formulary Item 1 EACH (Esomeprazole Magnesium [Nexium 24hr] 20 MG) PO SCH (09:00)
[2017-11-18] MEDS ORDERED: Amlodipine 5 MG TAB PO SCH (09:00)
[2017-11-18] MEDS: Cyclobenzaprine 10 MG TAB PO SCH ×2 (09:16→16:48)
[2017-11-18] MEDS: Enoxaparin Sodium 40 MG/0.4 ML SYRINGE SC SCH (09:19)
[2017-11-18] MEDS ORDERED: Potassium Chloride 20 MEQ TAB PO SCH (09:30)
[2017-11-18 12:25] LABS: Potassium 3.5 mmol/L (3.5-5.1)
--- NOTE | 2017-11-18 13:21 | PRG ---
DATE OF SERVICE: 11/18/2017 SUBJECTIVE: Ms. Thakur had her NG tube pulled yesterday and she is tolerating a clear liquid diet. She said she feels much better and is having no nausea or abdominal pain. Her small bowel follow t hrough in 1 hour. We will try to get her potassium above 3 today in anticipation of discharge later today.
--- NOTE | 2017-11-18 14:17 | PRG ---
DATE OF SERVICE: 11/18/2017 SUBJECTIVE: Ms. Thakur has been in the hospital now for 3 days. She had a small-bowel obstruction . She was placed in nasogastric suction followed by small bowel follow through, which was obtained y esterday. The contrast rapidly passed through her small intestine and her nasogastric tube was remov ed. She has had multiple bowel movements yesterday and today. She was started on a liquid diet, whi ch she is tolerating well. She denies any nausea, any vomiting or any abdominal pain. PHYSICAL EXAMINATION: VITAL SIGNS: She is afebrile. Vital signs are within normal limits. LUNGS: Clear to auscultation. ABDOMEN: Soft, nontender with normal bowel sounds. ASSESSMENT AND PLAN: The patient with resolved small-bowel obstruction. PLAN: She is certainly stable for discharge home today. I usually recommend a liquid diet for about 48 hours after resolution of an obstructive process. After that, she may resume a regular diet. Si nce I did not operate on her, I do not need to see her back in followup. I would anticipate her disc harge home today and she should require no medications in regard to this.
[2017-11-18 15:42] VITALS: BP 129/82; TEMP 98.3
[2017-11-18] MEDS ORDERED: Mirtazapine 15 MG TAB PO SCH (21:00)
--- NOTE | 2017-11-19 13:23 | DIS-2 ---
DATE OF ADMISSION: 11/16/2017 DATE OF DISCHARGE: 11/18/2017 RESIDENT: Sharda Ojeda M.D. ADMITTING ATTENDING: Mak Garcia M.D. DISCHARGE ATTENDING: Calos Meza M.D. CONSULTATIONS: General Surgery, Luis Henry M.D. PROCEDURES: 1. Abdomen and pelvis CT done at an outside Emergency Department, significant for a segment of small bowel dilatation with likely obstruction. Surgical consult recommended. 2. Abdomen x-ray on 11/16/2017, significant for a nasogastric tube with tip in stomach and a nonobstructive appearing bowel gas pattern. 3. Small bowel x-ray done on 11/17/2017, significant for mild persistent focal dilatation of some of the mid abdominal small bowel loops. The degree of dilatation of the segment of small bowel appears less pronounced than on the CT examination. Small bowel transit time was only 1 hour. PRIMARY DIAGNOSES: 1. Small-bowel obstruction. 2. Hypokalemia. SECONDARY DIAGNOSES: 1. Chronic obstructive pulmonary disease. 2. Hypertension. 3. Peripheral vascular disease. 4. History of lung cancer. 5. Chronic constipation. DISCHARGE MEDICATIONS: 1. Albuterol sulfate 2 puffs inhaled every 6 hours. 2. Amlodipine besylate 5 mg p.o. daily. 3. Aspirin 81 mg p.o. daily. 4. Cyclobenzaprine HCL 5 mg p.o. t.i.d. 5. Nexium 20 mg p.o. daily. 6. Atrovent 2.5 mg nebulized q.i.d. 7. Mirtazapine 15 mg p.o. at bedtime. 8. Nitroglycerin 0.5 mg sublingual every 5 minutes p.r.n. for angina. 9. Potassium chloride 40 mEq p.o. for 7 days. 10. Senokot 8.6 mg tab 1 tab p.o. b.i.d. DISCONTINUED MEDICATIONS: None. HISTORY OF PRESENT ILLNESS: The patient is an 87-year-old female with a past medical history significant for history of hysterectomy and 1 previous SBO who presented to the Emergency Department in [place] with a chief complaint of abdominal pain that began around noon on the day of presentation. Upon arriving to the ED in [place], an abdominal pelvic CT was performed which was significant for some small bowel dilatation suggestive of small-bowel obstruction. The patient was therefore stabilized and transferred to [facility] in [place]. On presentation to our ED, the patient reported no nausea or vomiting, but persistent abdominal pain. She stated her last bowel movement was around 6:00 p.m. on 11/15/2017. The patient was then given IV morphine and Zofran and an NG tube was placed. Baseline labs were also obtained in the outside Emergency Department, which were significant for an elevated white blood cell count of 15.8, but were otherwise within normal limits. Therefore, after being stabilized in the ED with an NG tube in place, the patient was transferred to the floor for observation overnight and made n.p.o. for bowel rest. She was also started on IV fluids with normal saline at 100 mL an hour with morphine and Zofran continued p.r.n. for pain and nausea control. Dr. Luis Henry with General Surgery was also consulted in the Emergency Department and came and evaluated the patient the following morning. Dr. Henry recommended proceeding with a Gastrograffin study the morning of . A repeat abdominal x-ray was obtained on 11/16/2017, which was significant for a nonobstructive appearing bowel gas pattern with the nasogastric tube in the tip of the stomach ensuring proper placement. The patient was therefore continued n.p.o. the second day of her hospitalization with IV fluids for hydration which were increased to NS at 125 mL an hour. The morning of 11/17/2017, she had her second small bowel x-ray with Gastrograffin, which showed some persistent focal dilatation of some of her small bowel loops, however, it was less pronounced than her initial CT examination done in [place] and her small bowel transit time was only one hour. Later that day, after the Gastrografin study, the patient had 4-5 loose bowel movements. Therefore her NG tube was discontinued and she was placed on a clear liquid diet. Dr. Henry then recommended that she remain on a clear liquid diet 48 hours after discharge and that she follow up with her primary care provider. On the morning of discharge, the patient denied any recurrent vomiting episodes and was tolerating liquids p.o. However, her potassium level that morning was low at 2.8 and she was given 20 mEq IV potassium and 40 mEq p.o. potassium for potassium replacement. A repeat potassium level done around 12 on the date of discharge showed that her potassium had risen to normal limits at 3.5 status post replacement. The patient was therefore cleared for discharge home in stable condition as she was tolerating her clear liquid diet well and her electrolytes had normalized. She was instructed to take p.o. potassium for 1 week and to follow up with her primary care provider within 1 week for a repeat BMP to ensure her potassium was still within normal limits. DISPOSITION: Stable. DISCHARGE INSTRUCTIONS: 1. Location: Home. 2. Diet: Clear liquid diet for 48 hours following discharge, then resume normal daily diet as tolerated. 3. Activity: As tolerated. No restrictions. 4. Followup: The patient was instructed to follow up with her primary care provider, Dr. Lane Monroy within 1 week of discharge for a repeat BMP to ensure her hypokalemia had resolved. ANDREA
== END 2017-11-18 17:00 | disposition home or self-care (01) | DRG 389 ==
LOC: ERS 22:48 → SURG A 11-16 00:25 → T4-A 11-17 20:53 → SURG A 11-17 20:58
PROVIDERS: ADMIT Emergency Medicine; ATTEND Emergency Medicine
DX: K56.609 Unspecified intestinal obstruction, unspecified as to partial versus complete obstruction (principal); C34.90 Malignant neoplasm of unspecified part of unspecified bronchus or lung; I25.10 Atherosclerotic heart disease of native coronary artery without angina pectoris; D64.9 Anemia, unspecified; I10 Essential (primary) hypertension; J45.909 Unspecified asthma, uncomplicated; I73.9 Peripheral vascular disease, unspecified; Z95.0 Presence of cardiac pacemaker; E87.6 Hypokalemia; J44.9 Chronic obstructive pulmonary disease, unspecified; K59.09 Other constipation; M19.90 Unspecified osteoarthritis, unspecified site; Z88.0 Allergy status to penicillin; Z88.8 Allergy status to other drugs, medicaments and biological substances; Z79.899 Other long term (current) drug therapy; Z87.890 Personal history of sex reassignment; Z92.21 Personal history of antineoplastic chemotherapy
CPT/HCPCS: 36415; 74018; 74250; 80048; 85025; 94640; 96361; 96374; 96375; A4216; G8978-GP-CI; G8979-GP-CI; G8980-GP-CI; J1650; J2270; J2405; J3480; J7644

== ENCOUNTER 2018-01-10 09:55 | Outpatient (CLI) | payer MEDICARE, MEDICAID ==
--- NOTE | 2018-01-10 14:28 | CT ---
CT CHEST WITH CONTRAST: HISTORY: Lung cancer. Restaging exam. COMPARISON: 08/21/2017 TECHNIQUE: Multiple contiguous axial images were obtained in a CT of the chest with contrast. Coronal reformats were performed. FINDINGS: There is a stable calcified nodule projecting over the left lung, measuring 1.6 cm in size. The prev iously seen spiculated mass in the right middle lobe is no longer visualized. There is a subtle area of ground glass attenuation in this area, measuring 1.4 cm in size, which likely represents scarring . There is also ground glass attenuation extending in a band-like fashion through the right middle l obe and the superior aspect of the right lower lobe, which may represent radiation therapy change. At electasis is seen in the lingula. No pleural effusion or pneumothorax is seen. There is a 5 to 6 mm nodule on image 15 of 47, in the lingula. This is slightly more prominent than the prior examinatio n. No other pulmonary nodules are seen. There are calcified hilar and mediastinal lymph nodes. The lymph nodes in the mediastinum are slight ly enlarged but stable compared to the prior examination. There are cysts seen in both kidneys. The other visualized subdiaphragmatic structures are unremarka ble. Degenerative changes are seen in the spine. No suspicious osseous lesions are identified. IMPRESSION: 1. Resolution of right middle lobe mass may be secondary to post radiation therapy change. There ap pears to be scarring in the right lung from the radiation therapy. 2. Slightly more prominent lingular nodule, as above. POS: [facility]
== END 2018-01-10 09:56 | disposition home or self-care (01) ==
LOC: SCSCT 09:55
PROVIDERS: ATTEND Radiology Radiation Oncology
DX: C34.90 Malignant neoplasm of unspecified part of unspecified bronchus or lung (principal); R91.1 Solitary pulmonary nodule; Z92.3 Personal history of irradiation
CPT/HCPCS: 71260

== ENCOUNTER 2018-03-23 14:54 | Outpatient (CLI) | payer MEDICARE, OTHER ==
--- NOTE | 2018-03-23 16:00 | RAD ---
CHEST TWO VIEWS: 03/23/18 HISTORY: Lung cancer. Followup. COMPARISON: 01/10/18. FINDINGS: The cardiac silhouette and pulmonary vasculature are unremarkable. Mediastinum is midline with aortic calcification and a dual lead left subclavian cardiac electronic device. Ill-defined parenchymal [place] at the right lower lobe is more pronounced than on the prior study. Fluid also layers at the pos terior costophrenic angle on the right. No evidence of pneumothorax. IMPRESSION: Increasing right basilar infiltrate and right pleural fluid. Cause is not evident . Atherosclerosis. Other chronic type findings are stable. POS: [facility]
== END 2018-03-23 14:55 | disposition home or self-care (01) ==
LOC: BICRAD 14:54
PROVIDERS: ATTEND Internal Medicine Medical Oncology
DX: C34.90 Malignant neoplasm of unspecified part of unspecified bronchus or lung (principal); I70.0 Atherosclerosis of aorta; J94.8 Other specified pleural conditions; R91.8 Other nonspecific abnormal finding of lung field
CPT/HCPCS: 36415; 71046; 80053; 82248; 83615; 84100; 84550

== ENCOUNTER 2018-03-28 13:41 | Outpatient (CLI) | payer MEDICARE, MEDICAID ==
[~2018-03-28 13:41] MED LIST: ISOVUE-370 76%-LOCM 1 ML ONE
--- NOTE | 2018-03-28 15:52 | CT ---
CT OF THE THORAX WITH IV CONTRAST: INDICATION: Followup lung cancer. COMPARISON: Prior CT of the thorax dated 01/10/2018. FINDINGS: There is a spiculated pulmonary nodule seen within the medial aspect of the right middle lobe measuri ng 1.6 cm in its greatest axial dimension whereas previously it measured 1.4 cm. The radiation pneum onitis and scarring in the right lower lobe is stable. The nodule with associated eccentric calcific ation within the right upper lobe adjacent to the right major fissure is relatively similar measuring 2.2 cm. A small pulmonary nodule in the left upper lobe previously measuring 5.6 mm measures approximately 5. 1 mm. Patchy pleural parenchymal scarring involving both lung apices is similar-appearing. Patchy s carring within the region of the inferior lingula is stable. Hazy ground-glass opacity is present wi thin both lower lobes, left greater than right. The pretracheal enlarged lymph node previously measuring 1.5 cm now measures 1.6 cm. The tracheobron chial lymph node previously measuring 8 mm now measures 1 cm. Left hilar lymph node measuring 7.5 mm previously measured 8 mm. There is a pretracheal lymph node measuring 6 mm, which is relatively sta ble to the prior exam. Shotty-appearing lymph nodes seen within the distal periaortic region of the lower mediastinum is similar-appearing. Bilateral renal cysts are again noted. There is nonobstructing renal calculi within both kidneys. N o acute osseous abnormality is evident. There is diffuse osteopenia with thoracolumbar scoliosis. IMPRESSION: 1. Stable examination of the thorax. The spiculated pulmonary nodule on today's examination measure s approximately 1.6 cm whereas on the comparison examination measured 1.4 cm when accounting for slig ht differences in technique and respiratory motion artifact, the lesion is likely stable. A 5 mm pul monary nodule in the left upper lobe is stable. 2. Partially calcified pulmonary nodule within the right upper lobe adjacent to the right major fiss ure is stable. 3. There is a new hazy airspace opacity within both lower lobes which may reflect pneumonitis from r adiation therapy or possibly infection. Recommend correlation. This also can be seen with diffuse s ubsegmental volume loss within the lower lobes. 4. The area of scarring within the right lower lobe appears stable. Pleural parenchymal scarring in volving both lung apices appears similar-appearing. 5. Enlarged mediastinal and hilar lymphadenopathy is likely stable to the comparison exam. 6. Continued followup is recommended. POS: [facility]
== END 2018-03-28 13:42 | disposition home or self-care (01) ==
LOC: BICCT 13:41
PROVIDERS: ATTEND Internal Medicine Medical Oncology
DX: C34.31 Malignant neoplasm of lower lobe, right bronchus or lung (principal); R91.8 Other nonspecific abnormal finding of lung field; J98.4 Other disorders of lung; R59.0 Localized enlarged lymph nodes
CPT/HCPCS: 71260

== ENCOUNTER 2018-08-10 15:43 | Outpatient (CLI) | payer MEDICARE, OTHER ==
--- NOTE | 2018-08-10 16:03 | RAD ---
EXAM: CHEST TWO VIEWS: 08/10/18 HISTORY: Malignant neoplasm of lower lobe right bronchus, COMPARISON: 03/23/18. FINDINGS: Overall stable appearing increased linear and interstitial parenchymal changes in the mid and lower l jory zones, in particular. Stable biapical pleural thickening. Left ICD. Heart size is within normal l imits. Bone demineralization. IMPRESSION: Overall stable chronic changes bilaterally. No significant acute process. Atherosclerosis of the aort a. POS: [facility]
== END 2018-08-10 15:44 | disposition home or self-care (01) ==
LOC: BICRAD 15:43
PROVIDERS: ATTEND Internal Medicine Medical Oncology
DX: C34.31 Malignant neoplasm of lower lobe, right bronchus or lung (principal); I70.0 Atherosclerosis of aorta
CPT/HCPCS: 36415; 71046; 80053; 82248; 83615; 84100; 84550

== ENCOUNTER 2019-05-09 10:39 | Outpatient (CLI) | payer MEDICARE, OTHER ==
--- NOTE | 2019-05-09 11:01 | RAD ---
2 view chest: [05/09/2019] Comparison:03/23/2019 HISTORY: Malignant neoplasm of the right lower lobe, lung cancer FINDINGS: Stable dual lead transvenous pacing device. Coarse increased linear interstitial density noted bilaterally. Mild elevation of the right hemidiaph ragm. Persistent asymmetric coarse linear density noted in the infrahilar region/lung base on the right. Si milar linear density noted in the left base. IMPRESSION: Stable 2 view examination of the chest. No focal consolidation or alveolar edema.
== END 2019-05-09 10:40 | disposition home or self-care (01) ==
LOC: BICRAD 10:39
PROVIDERS: ATTEND Internal Medicine Medical Oncology
DX: C34.31 Malignant neoplasm of lower lobe, right bronchus or lung (principal)
CPT/HCPCS: 36415; 71046; 80053; 82248; 83615; 84100; 84550

== ENCOUNTER 2019-08-10 11:04 | Outpatient (CLI) | payer MEDICARE, OTHER ==
--- NOTE | 2019-08-10 12:21 | RAD ---
EXAM: Chest PA and lateral: HISTORY: Malignant neoplasm of the lower lobe, right bronchus COMPARISON: 05/09/2019 FINDINGS: Pacemaker: Stable left-sided transvenous pacemaker Heart: Normal cardiac silhouette Aorta: Atherosclerosis Pulmonary vessels: Normal Costophrenic angles: Costophrenic angles are clear. Lungs: Persistent opacities in the lung parenchyma with a more irregular marginated opacity in the ri ght lower lobe and more focal nodular opacity along the lateral left hemithorax. Pneumothorax: No pneumothorax Osseous structures: No osseous abnormalities IMPRESSION: No significant interval change.
== END 2019-08-10 11:05 | disposition home or self-care (01) ==
LOC: BICRAD 11:04
PROVIDERS: ATTEND Internal Medicine Medical Oncology
DX: C34.31 Malignant neoplasm of lower lobe, right bronchus or lung (principal)
CPT/HCPCS: 36415; 71046; 80053; 82248; 83615; 84100; 84550

== ENCOUNTER 2020-05-24 08:23 | Outpatient (CLI) | payer MEDICARE, MEDICAID | END 2020-05-24 08:24 | disposition home or self-care (01) | LOC: PET 08:23 | PROVIDERS: ATTEND Radiology Radiation Oncology | DX: R91.1 Solitary pulmonary nodule (principal); Z85.118 Personal history of other malignant neoplasm of bronchus and lung | CPT/HCPCS: 78815; A9552 ==

== ENCOUNTER 2020-08-15 12:42 | Inpatient (IN) | payer MEDICARE, OTHER ==
[2020-08-15 18:02] VITALS: BMI 17.5
[2020-08-15] MEDS ORDERED: Ondansetron ODT 4 MG TAB PO PRN ×2 (19:22→23:55)
[2020-08-15] MEDS ORDERED: Calcium Carbonate 500 MG ChewTAB PO PRN (19:22)
[2020-08-15] MEDS ORDERED: Acetaminophen 650 MG Suppository PR PRN (19:22)
[2020-08-15] MEDS ORDERED: Ondansetron PF 4 MG/2 ML Vial IVP PRN (19:22)
[2020-08-15] MEDS ORDERED: Acetaminophen 325 MG TAB PO PRN (19:22)
[2020-08-15] MEDS ORDERED: Enoxaparin Sodium 40 MG/0.4 ML SYRINGE SC SCH (20:00)
[2020-08-16 04:32] LABS: ALT (SGPT) 10 U/L (8-55); AST (SGOT) 15 U/L (5-34); Albumin 3.7 g/dL (3.4-4.8); Alkaline Phosphatase 127 U/L (40-110); Anion Gap 10 mmol/L (10-20); BUN (Urea Nitrogen) 7 mg/dL (9.8-20.1); Bilirubin, Total 0.4 mg/dL (0.2-1.2); Calc. Creatinine Clearance 38 mL/min (70-130); Calcium 9.1 mg/dL (7.8-10.44); Carbon Dioxide 26 mmol/L (23-31); Chloride 107 mmol/L (98-107); Globulin 3.3 g/dL (2.4-3.5); Glucose 91 mg/dL (83-110); Potassium 3.1 mmol/L (3.5-5.1); Sodium 140 mmol/L (136-145)
[2020-08-16 04:53] LABS: Band 4 % (5-11); Eosinophils 1 % (0-10); Lymphocytes 66 % (21-51); MDiff Complete? YES; Mean Corpuscular HGB CONC 32.8 g/dL (32.0-36.0); Mean Corpuscular Volume 97.5 fL (78.0-98.0); Mean Platelet Volume 8.8 fL (7.4-10.4); Monocytes 1 % (0-10); Neutrophil 24 % (42-75); Platelet Count 152 thou/uL (130-400); RBC Distribution Width 14.2 % (11.5-14.5); Reactive Lymphocytes 4 % (0-10); Red Blood Cell (RBC) Count 3.75 mill/uL (4.20-5.40); White Blood Cell (WBC) Count 27.2 thou/uL (4.8-10.8)
[2020-08-16] MEDS ORDERED: Potassium Chloride 20 MEQ TAB PO SCH (06:30)
[2020-08-16 07:08] LABS: Bacteria/HPF None Seen HPF (None Seen); Bilirubin Negative (Negative); Blood, Urine Negative (Negative); Clarity Clear (Clear); Glucose, Urine (Dipstick) Normal (Negative); Ketone, Urine Negative (Negative); Leukocyte Negative Leu/uL (Negative); Nitrite Negative (Negative); Protein, Urine (Dipstick) Negative (Neg-Trace); RBC/HPF 0-3 HPF (0-3); Specific Gravity, Urine 1.032 (1.002-1.036); Squamous Epithelial 0-3 HPF (0-3); Urobilinogen Normal mg/dL (Less than 2); WBC/HPF 0-3 HPF (0-3)
[2020-08-16] MEDS: Aspirin 81 mg Enteric Coated Tablet PO SCH (09:17)
[2020-08-16] MEDS: Multivit, Therapeutic 1 TAB PO SCH (09:18)
[2020-08-16] MEDS: Potassium Chloride 20 MEQ TAB PO SCH ×2 (09:18→20:05)
[2020-08-16] MEDS: Amlodipine 5 MG TAB PO SCH (09:18)
[2020-08-16] MEDS: Saccharomyces boulardii 250 MG CAP PO SCH (09:18)
[2020-08-16] MEDS: Atorvastatin Calcium 40 MG TAB PO SCH (09:18)
[2020-08-16] MEDS: Cyclobenzaprine 10 MG TAB PO SCH ×3 (09:19→20:06)
[2020-08-16 12:14] LABS: SARS-CoV-2 PCR by NAA Not Detected (NotDetected)
[2020-08-17 07:38] LABS: Anion Gap 11 mmol/L (10-20); BUN (Urea Nitrogen) 8 mg/dL (9.8-20.1); Calc. Creatinine Clearance 39 mL/min (70-130); Calcium 9.2 mg/dL (7.8-10.44); Carbon Dioxide 26 mmol/L (23-31); Chloride 107 mmol/L (98-107); Glucose 111 mg/dL (83-110); Potassium 3.7 mmol/L (3.5-5.1); Sodium 140 mmol/L (136-145)
[2020-08-17 07:56] LABS: Band 9 % (5-11); Hemoglobin 13.2 g/dL (12.0-16.0); Lymphocytes 65 % (21-51); MDiff Complete? YES; Mean Corpuscular HGB CONC 33.7 g/dL (32.0-36.0); Mean Corpuscular Hemoglobin 32.7 pg (27.0-31.0); Mean Platelet Volume 8.7 fL (7.4-10.4); Monocytes 2 % (0-10); Neutrophil 24 % (42-75); Platelet Count 149 thou/uL (130-400); RBC Distribution Width 14.3 % (11.5-14.5); Red Blood Cell (RBC) Count 4.03 mill/uL (4.20-5.40); White Blood Cell (WBC) Count 22.9 thou/uL (4.8-10.8)
[2020-08-17] MEDS: Cyclobenzaprine 10 MG TAB PO SCH ×3 (09:08→20:39)
[2020-08-17] MEDS: Amlodipine 5 MG TAB PO SCH (09:09)
[2020-08-17] MEDS: Atorvastatin Calcium 40 MG TAB PO SCH (09:10)
[2020-08-17] MEDS: Saccharomyces boulardii 250 MG CAP PO SCH (09:10)
[2020-08-17] MEDS: Multivit, Therapeutic 1 TAB PO SCH (09:10)
[2020-08-17] MEDS: Potassium Chloride 20 MEQ TAB PO SCH ×2 (09:10→20:39)
[2020-08-17] MEDS: Aspirin 81 mg Enteric Coated Tablet PO SCH (09:10)
[2020-08-18] MEDS: Atorvastatin Calcium 40 MG TAB PO SCH (08:40)
[2020-08-18] MEDS: Potassium Chloride 20 MEQ TAB PO SCH (08:40)
[2020-08-18] MEDS: Multivit, Therapeutic 1 TAB PO SCH (08:40)
[2020-08-18] MEDS: Aspirin 81 mg Enteric Coated Tablet PO SCH (08:40)
[2020-08-18] MEDS: Cyclobenzaprine 10 MG TAB PO SCH ×3 (08:41→21:27)
[2020-08-18] MEDS: Saccharomyces boulardii 250 MG CAP PO SCH (08:41)
[2020-08-18] MEDS: Amlodipine 5 MG TAB PO SCH (08:41)
[2020-08-18] MEDS ORDERED: Ciprofloxacin 500 MG TAB PO SCH (09:00)
[2020-08-18] MEDS ORDERED: metroNIDAZOLE 250 MG TAB PO SCH (09:00)
[2020-08-18] MEDS: Ciprofloxacin 500 MG TAB PO SCH (19:25)
[2020-08-18] MEDS ORDERED: Potassium Chloride 20 MEQ TAB PO SCH (21:00)
[2020-08-18] MEDS: metroNIDAZOLE 250 MG TAB PO SCH (21:26)
[2020-08-19 04:51] LABS: Hemoglobin 13.3 g/dL (12.0-16.0); Mean Corpuscular HGB CONC 33.2 g/dL (32.0-36.0); Mean Corpuscular Hemoglobin 32.4 pg (27.0-31.0); Mean Corpuscular Volume 97.4 fL (78.0-98.0); Mean Platelet Volume 8.7 fL (7.4-10.4); Platelet Count 140 thou/uL (130-400); RBC Distribution Width 14.2 % (11.5-14.5); White Blood Cell (WBC) Count 22.8 thou/uL (4.8-10.8)
[2020-08-19 05:02] LABS: Anion Gap 15 mmol/L (10-20); BUN (Urea Nitrogen) 10 mg/dL (9.8-20.1); Calc. Creatinine Clearance 38 mL/min (70-130); Calcium 9.7 mg/dL (7.8-10.44); Carbon Dioxide 24 mmol/L (23-31); Chloride 106 mmol/L (98-107); Glucose 123 mg/dL (83-110); Potassium 4.1 mmol/L (3.5-5.1); Sodium 141 mmol/L (136-145)
[2020-08-19 05:18] LABS: Band 13 % (5-11); Lymphocytes 61 % (21-51); MDiff Complete? YES; Monocytes 4 % (0-10); Neutrophil 22 % (42-75)
[2020-08-19 07:31] VITALS: BP 108/68; TEMP 97.9
[2020-08-19] MEDS ORDERED: Potassium Chloride 20 MEQ TAB PO SCH (08:00)
[2020-08-19] MEDS: Aspirin 81 mg Enteric Coated Tablet PO SCH (08:26)
[2020-08-19] MEDS: Atorvastatin Calcium 40 MG TAB PO SCH (08:26)
[2020-08-19] MEDS: metroNIDAZOLE 250 MG TAB PO SCH (08:26)
[2020-08-19] MEDS: Ciprofloxacin 500 MG TAB PO SCH (08:26)
[2020-08-19] MEDS: Amlodipine 5 MG TAB PO SCH (08:26)
[2020-08-19] MEDS: Cyclobenzaprine 10 MG TAB PO SCH (08:26)
[2020-08-19] MEDS: Multivit, Therapeutic 1 TAB PO SCH (08:27)
[2020-08-19] MEDS: Saccharomyces boulardii 250 MG CAP PO SCH (08:27)
== END 2020-08-19 14:40 | disposition home health service (06) | DRG 392 ==
LOC: ONC 17:20 → INTOOBSV 17:20 → OBSVTOIN 08-18 09:53
PROVIDERS: ADMIT Family Medicine; ATTEND Family Medicine
DX: K52.9 Noninfective gastroenteritis and colitis, unspecified (principal); C91.00 Acute lymphoblastic leukemia not having achieved remission; Z20.822 Contact with and (suspected) exposure to COVID-19; E44.0 Moderate protein-calorie malnutrition; I25.10 Atherosclerotic heart disease of native coronary artery without angina pectoris; I10 Essential (primary) hypertension; E87.6 Hypokalemia; J44.9 Chronic obstructive pulmonary disease, unspecified; R91.1 Solitary pulmonary nodule; Z68.1 Body mass index [BMI] 19.9 or less, adult; Z88.1 Allergy status to other antibiotic agents; Z91.010 Allergy to peanuts; Z79.82 Long term (current) use of aspirin; Z79.51 Long term (current) use of inhaled steroids; Z79.899 Other long term (current) drug therapy; Z85.118 Personal history of other malignant neoplasm of bronchus and lung; Z90.49 Acquired absence of other specified parts of digestive tract
CPT/HCPCS: 36415; 80048; 80053; 81001; 82274; 83630; 85025; 87045; 87046; 87324; 87328; 87329; 87427; 87449; 96372; G0378; J1650; U0003; U0005

== ENCOUNTER 2021-01-15 17:54 | Inpatient (IN) | payer MEDICARE, OTHER ==
[2021-01-15 19:53] VITALS: BMI 18.6
[2021-01-15] MEDS ORDERED: Ondansetron PF 4 MG/2 ML Vial IVP PRN (21:14)
[2021-01-15] MEDS ORDERED: Acetaminophen 325 MG TAB PO PRN (21:14)
[2021-01-15] MEDS ORDERED: Nitroglycerin 0.4 MG TAB (25 Tab Bottle) SL PRN (21:25)
[2021-01-15 22:17] LABS: Troponin I 0.033 ng/mL (< 0.028)
[2021-01-16 01:21] LABS: Troponin I 0.034 ng/mL (< 0.028)
[2021-01-16 05:51] LABS: Anion Gap 10 mmol/L (10-20); BUN (Urea Nitrogen) 13 mg/dL (9.8-20.1); Calc. Creatinine Clearance 42 mL/min (70-130); Carbon Dioxide 25 mmol/L (23-31); Cardiac Risk 6.2 (Less than 4.5); Chloride 110 mmol/L (98-107); Cholesterol 117 mg/dl (< 200 Desired); Glucose 98 mg/dL (83-110); HDL Cholesterol 19 mg/dL (>60 Neg Risk); LDL Cholesterol, Calculated 85 mg/dL; Potassium 3.3 mmol/L (3.5-5.1); Sodium 142 mmol/L (136-145); Triglycerides 66 mg/dL (Less than 150)
[2021-01-16 05:55] LABS: Anisocytosis MODERATE=16-30 cells (100X) (0-5/hpf); Differential Comment Immature Cell(s); Hemoglobin 7.5 g/dL (12.0-16.0); Hypochromia MODERATE=16-30 cells (100X) (0-5/hpf); Lymphocytes 62 % (21-51); MDiff Complete? YES; Macrocytosis SLIGHT = 6-15 cells (100X) (0-5/hpf); Mean Corpuscular HGB CONC 31.6 g/dL (32.0-36.0); Mean Corpuscular Volume 88.4 fL (78.0-98.0); Mean Platelet Volume 8.4 fL (7.4-10.4); Monocytes 4 % (0-10); Neutrophil 27 % (42-75); Platelet Count 193 thou/uL (130-400); Platelet Morphology Comment Appears Adequate; Polychromasia SLIGHT = 2-3 cells (100X) (0-2/hpf); RBC Distribution Width 18.1 % (11.5-14.5); Reactive Lymphocytes 3 % (0-10); Red Blood Cell (RBC) Count 2.69 mill/uL (4.20-5.40); Reflex for Review?? YES; White Blood Cell (WBC) Count 22.2 thou/uL (4.8-10.8)
[2021-01-16] MEDS ORDERED: Cyclobenzaprine 10 MG TAB PO PRN (06:41)
[2021-01-16] MEDS ORDERED: Aspirin 81 mg Enteric Coated Tablet PO SCH (09:00)
[2021-01-16] MEDS ORDERED: Multivit, Therapeutic 1 TAB PO SCH (09:00)
[2021-01-16] MEDS ORDERED: Atorvastatin Calcium 40 MG TAB PO SCH (09:00)
[2021-01-16] MEDS ORDERED: Sodium Chloride 0.9% 250 ML IV SCH (10:45)
[2021-01-16 12:24] VITALS: BP 97/52; TEMP 98.2
== END 2021-01-16 14:55 | disposition home health service (06) | DRG 181 ==
LOC: 2SW 18:33 → OBSVTOIN 21:14
PROVIDERS: ADMIT Family Medicine; ATTEND Internal Medicine
DX: C34.12 Malignant neoplasm of upper lobe, left bronchus or lung (principal); C91.00 Acute lymphoblastic leukemia not having achieved remission; J45.901 Unspecified asthma with (acute) exacerbation; Z20.822 Contact with and (suspected) exposure to COVID-19; I25.10 Atherosclerotic heart disease of native coronary artery without angina pectoris; E78.5 Hyperlipidemia, unspecified; I10 Essential (primary) hypertension; M19.90 Unspecified osteoarthritis, unspecified site; J45.909 Unspecified asthma, uncomplicated; E78.00 Pure hypercholesterolemia, unspecified; D50.9 Iron deficiency anemia, unspecified; Z88.0 Allergy status to penicillin; Z88.1 Allergy status to other antibiotic agents; Z79.899 Other long term (current) drug therapy; Z79.82 Long term (current) use of aspirin; Z95.0 Presence of cardiac pacemaker; Z90.710 Acquired absence of both cervix and uterus; Z90.49 Acquired absence of other specified parts of digestive tract; Z99.81 Dependence on supplemental oxygen
CPT/HCPCS: 36415; 80048; 80061; 84484; 85025; 85060; 87804; J7030

== ENCOUNTER 2021-01-17 12:03 | Observation (INO) | payer MEDICARE, OTHER ==
[2021-01-17] MEDS ORDERED: Calcium Carbonate 500 MG ChewTAB PO PRN (13:46)
[2021-01-17] MEDS ORDERED: Senokot S 8.6-50 MG TAB PO PRN (13:46)
[2021-01-17] MEDS ORDERED: Acetaminophen 325 MG TAB PO PRN (13:46)
[2021-01-17 16:25] LABS: Hemoglobin 7.9 g/dL (12.0-16.0); Platelet Count 178 thou/uL (130-400)
[2021-01-17] MEDS: Famotidine 20 MG TAB PO SCH (20:58)
[2021-01-17] MEDS ORDERED: Atorvastatin Calcium 40 MG TAB PO SCH (21:00)
[2021-01-18 05:15] LABS: Hemoglobin 11.9 g/dL (12.0-16.0); Mean Corpuscular Hemoglobin 28.8 pg (27.0-31.0); Mean Corpuscular Volume 89.9 fL (78.0-98.0); Mean Platelet Volume 8.9 fL (7.4-10.4); Platelet Count 172 thou/uL (130-400); RBC Distribution Width 16.2 % (11.5-14.5); Red Blood Cell (RBC) Count 4.13 mill/uL (4.20-5.40); White Blood Cell (WBC) Count 21.4 thou/uL (4.8-10.8)
[2021-01-18 05:32] LABS: ALT (SGPT) 20 U/L (8-55); AST (SGOT) 23 U/L (5-34); Albumin 3.7 g/dL (3.4-4.8); Alkaline Phosphatase 111 U/L (40-110); Anion Gap 13 mmol/L (10-20); BUN (Urea Nitrogen) 6 mg/dL (9.8-20.1); Bilirubin, Total 3.3 mg/dL (0.2-1.2); Calc. Creatinine Clearance 0 mL/min (70-130); Carbon Dioxide 24 mmol/L (23-31); Chloride 106 mmol/L (98-107); Globulin 3.5 g/dL (2.4-3.5); Glucose 101 mg/dL (83-110); Potassium 3.2 mmol/L (3.5-5.1); Protein, Total 7.2 g/dL (5.8-8.1); Sodium 140 mmol/L (136-145)
[2021-01-18 06:30] LABS: Band 1 % (5-11); Lymphocytes 69 % (21-51); MDiff Complete? YES; Monocytes 3 % (0-10); Neutrophil 27 % (42-75)
[2021-01-18] MEDS: Famotidine 20 MG TAB PO SCH (08:07)
[2021-01-18] MEDS ORDERED: Enoxaparin Sodium 40 MG/0.4 ML SYRINGE SC SCH (09:00)
[2021-01-18] MEDS ORDERED: Multivit, Therapeutic 1 TAB PO SCH (09:00)
[2021-01-18] MEDS ORDERED: FLU VACC QS2021-22(65YR UP)/PF 240 MCG/0.7 ML SYRINGE IM ONE (09:00)
[2021-01-18] MEDS ORDERED: Potassium Chloride 20 MEQ TAB PO SCH (10:15)
[2021-01-18 11:39] VITALS: BP 141/70; TEMP 98.1
[2021-01-18 12:26] LABS: Hemoglobin 13.4 g/dL (12.0-16.0); Platelet Count 189 thou/uL (130-400)
== END 2021-01-18 14:15 | disposition home or self-care (01) ==
LOC: 2SW 13:29
PROVIDERS: ADMIT Internal Medicine; ATTEND Family Medicine
DX: J96.01 Acute respiratory failure with hypoxia (principal); D62 Acute posthemorrhagic anemia; R91.1 Solitary pulmonary nodule; I25.10 Atherosclerotic heart disease of native coronary artery without angina pectoris; J44.9 Chronic obstructive pulmonary disease, unspecified; I73.9 Peripheral vascular disease, unspecified; E87.6 Hypokalemia; C91.90 Lymphoid leukemia, unspecified not having achieved remission; Z85.118 Personal history of other malignant neoplasm of bronchus and lung; Z92.3 Personal history of irradiation; Z79.82 Long term (current) use of aspirin; Z79.899 Other long term (current) drug therapy; Z88.0 Allergy status to penicillin; Z88.1 Allergy status to other antibiotic agents; Z87.891 Personal history of nicotine dependence
CPT/HCPCS: 36430 ×2; 71045; 80053; 82728; 85014 ×2; 85018 ×2; 85025; 85049 ×2; 86850 ×2; 86870; 86900; 86901; 86920; 86922; 93005; 96372; 97116; 97139 ×2; G0378 ×2; P9016 ×2; 36415; 82274; 93010; J1650